=== PATIENT | male | born 1940 ===

== ENCOUNTER 2024-12-14 14:21 | Outpatient (CLI) | payer MEDICARE, BC, SELFPAY ==
[2024-12-14 13:12] LABS: Abs Immature Grans 0.02 10^3/uL (0.0-0.06); Absolute Eosinophil Count 0.18 10^3/uL (0.0-0.7); Absolute Lymphocyte Count 1.19 10^3/uL (1.2-3.4); Absolute Neutrophil Count 3.85 10^3/uL (1.2-6.7); Basophils % 1.6 %; Eosinophils % 2.9 %; HCT 39.1 % (40.0-50.0); HGB 12.9 g/dL (13.5-17.5); Immature Grans % 0.3 %; Lymphocytes % 19.1 %; MCV 103 fL (80-95); MPV 9.8 fL (8.0-11.0); Monocytes % 14.4 %; Neutrophils % 61.7 %; Platelet Count 301 10^3/uL (130-400); RBC 3.79 10^6/uL (4.36-5.78); RDW 14.5 % (11.8-14.1); RDW-SD 54.9 fL; WBC 6.24 10^3/uL (4.4-10.8)
[2024-12-14 13:56] LABS: ALT 38 U/L (16-63); AST 34 U/L (15-37); Albumin 3.4 g/dL (3.4-5.0); Alkaline Phosphatase 90 U/L (46-116); Anion Gap 9.2 mmol/L (3-11); BUN 44 mg/dL (7-18); Bilirubin, Total 0.5 mg/dL (0.2-1.0); CO2 26.8 mmol/L (21.0-32.0); CREATININE 1.4 mg/dL (0.70-1.30); Calcium 9.7 mg/dL (8.5-10.1); Chloride 106 mmol/L (98-107); Estimated GFR 48.95 (mL/min/1.73m2); Ferritin 76 ng/mL (26-388); Glucose 101 mg/dL (74-106); Potassium 4.8 mmol/L (3.5-5.1); Sodium 142 mmol/L (136-145); Total Protein 7.2 g/dL (6.4-8.2)
== END 2024-12-14 14:22 | disposition home or self-care (01) ==
LOC: LBO 14:22
PROVIDERS: Visit Provider Nurse Practitioner Family
DX: D50.0 Iron deficiency anemia secondary to blood loss (chronic) (principal); D47.3 Essential (hemorrhagic) thrombocythemia
CPT/HCPCS: 36415; 80053; 82728; 85025